=== PATIENT | female | born 1930 | race Caucasian/White ===

== ENCOUNTER 2016-06-21 18:32 | Emergency (ER) | payer MEDICARE ==
[2016-06-21] VITALS (9 sets, daily range): BP systolic 79–145; BP diastolic 47–104; PULSE 98–140; RESP 16–20; O2SAT 91–100
[~2016-06-21] VITALS: Ht 162.6 cm; Wt 68.2 kg
[2016-06-21] MEDS ORDERED: Ondansetron 2 mg/mL 2 mL Inj ONE (18:36)
[2016-06-21] MEDS ORDERED: MeTOProlol 1 mg/mL 5 mL Inj IVPUSH ONE ×2 (18:55→19:25)
[2016-06-21 18:58] LABS: BASOPHILS % (AUTO) 0.1 % (0-3); EOSINOPHILS % (AUTO) 0 % (0-5); MONOCYTES % (AUTO) 8.8 % (4-12); Mean Corpuscular Hemoglobin 26.7 pg (27.0-35.0); Mean Corpuscular Volume 85.2 fL (81-100); NEUTROPHILS % (AUTO) 86.6 % (40-74); Platelet Count 290 bil/L (150-400)
--- NOTE | 2016-06-21 19:10 | DRSVH ---
PROCEDURE: X-RAY CHEST ONE VIEW, PORTABLE ([id number]) INDICATIONS: Atrial fibrillation. TECHNIQUE: One view of the chest was acquired. COMPARISON: [facility], CR, CHEST 2VW, 04/25/2010, 10:50. FINDINGS: Surgical changes and devices: None. Lungs and pleura: No pleural effusions or pneumothorax. Streaky opacities noted in the right lung ba se likely represent atelectasis. Mediastinum: Mediastinal contours appear normal. Heart size is normal. Bones and chest wall: No suspicious bony lesions. Overlying soft tissues appear unremarkable. IMPRESSION: Probable right basilar atelectasis. No pulmonary edema. Dictated by: Connie Holbrook MD, PhD on 06/21/2016 at 19:08 Approved by: Connie Holbrook MD, PhD on 06/21/2016 at 19:09
[2016-06-21 19:27] LABS: TROPONIN T < 0.010 ug/L (0.0-0.011)
--- NOTE | 2016-06-21 19:30 | ED.REPORT ---
HPI-General Illness Date of Service Jun 21, 2016 ED Provider: Mehran Mcdaniel MD Johana Humphries is an 86 year old woman with a PMH of DM2, and HTN who presents having been found down by her daughter. Her daughter relates that the patient was in her usual state of health at 8am, and then when she returned home around 17:30 the patient was lying flat on the living room without recollection of how she had gotten there. She was able to give her demographic information to EMT and was A/O x3 on their initial evaluation. EMS relates that the patient was found to be in rapid Afib which continues upon arrival to the ER and is apparently an new phenomena for her. Her daughter relates that perhaps her face is slightly different compared to baseline. Nursing Notes Chief Complaint: Dysrhythmia/Cardiac Nursing Notes Reviewed: Yes Allergies: Coded Allergies: No Known Allergies (Unverified , 06/21/16) General Time Seen by MD: 19:15 Chief Complaint Other (GLF) Hx Obtained From: Patient Arrived By: Ambulance Sudden in Onset?: Yes Onset Occurred: 1 - 4 hours ago Caused by: Fall on ground Context: Occurred at: Home injury Location: : Hip left Quality: Aching Severity: Current: Mild Severity: Maximum: Mild Recent Healthcare: No recent doctor visit Similar Sx Previous: No Past Medical History Past Medical History DM2 HTN Goiter Review of Systems Full Review of Systems Constitutional: Reports: Weakness - generalized Cardiovascular: Reports: Palpitations Musculoskeletal: Reports: Joint pain Neurologic: Reports: Dizziness Complete sys rev & neg: except as marked. Physical Exam Gen: A/O x3 though attention is intermittent, leaning to the right, pleasant cooperative woman in NAD Neck: Supple, sidebent right, Large symmetrical Goiter extending to SCM BL HEENT: Heavy pannus, PERRL, EOMI, no scleral icterus CV: irregularly irregular, distant heart sounds, unable to detect murmur Resp: Coarse breath sounds BL, no wheezing rales or rhonchi Extr: Multiple skin sores in various stages of healing, no cyanosis clubbing or edema, patient able to elevate both legs off the bed Neuro: difficult to ascertain as patient's status as she is intermittently sleepy, perhaps nasal labial asymmetry though difficult to assess if this is due to chronic dependent edema from rightward leaning Vital Signs Vital Signs Date Time Temp Pulse Resp B/P Pulse Ox O2 Delivery O2 Flow Rate FiO2 06/21/16 22:16 109 16 79/47 100 ET Tube 06/21/16 21:56 120 16 116/76 100 ET Tube 06/21/16 21:47 115 16 111/62 100 ET Tube 06/21/16 21:17 36.8 115 16 120/66 100 ET Tube 06/21/16 20:50 125 17 145/94 100 ET Tube 06/21/16 20:50 100 06/21/16 20:31 112 18 138/92 99 Room Air 06/21/16 19:09 132 18 133/104 93 Room Air 06/21/16 18:50 36.2 140 20 113/97 91 Room Air Initial VS: Reviewed, Vital signs abnormal (Tachycardia and elevated diastolic pressure) Interpretation & Diagnostics Interpretation & Diagnostics: CT BRAIN WITHOUT CONTRAST IMPRESSION: 1. Large hypodensity involving the right cerebellar hemisphere concerning for subacute infarct. Recommend MRI of the brain for definitive characterization of a finding to exclude a underlying neoplastic process or subacute hemorrhage if clinically indicated. 2. Local mass effect is noted in the right posterior fossa with partial effacement of the right ambient cistern, mass effect on the fourth ventricle and mass effect on the upper medulla. No evidence of obstructive hydrocephalus identified in the current study. 3. Findings telephoned to Dr. Mehran Mcdaniel on 06/21/2016 at 1955 hrs. Dictated by: Connie Holbrook MD, PhD on 06/21/2016 at 19:51 Approved by: Connie Holbrook MD, PhD on 06/21/2016 at 20:00 Lab Results Interpretation Result Diagram: 06/21/16 1846 06/21/16 1846 Test 06/21/16 18:46 06/21/16 20:13 White Blood Count 11.8th/mm3 (3.8-10.1) Red Blood Count 4.46mil/mm3 (3.90-5.20) Hemoglobin 11.9g/dL (12.0-15.6) Hematocrit 38.0% (35.0-46.0) Mean Corpuscular Volume 85.2fL (81-100) Mean Corpuscular Hemoglobin 26.7pg (27.0-35.0) Mean Corpuscular Hemoglobin Concent 31.3% (32.0-37.0) Red Cell Distribution Width 15.8% (12.3-15.4) Platelet Count 290bil/L (150-400) Neutrophils (%) (Auto) 86.6% (40-74) Lymphocytes (%) (Auto) 4.3% (14-46) Monocytes (%) (Auto) 8.8% (4-12) Eosinophils (%) (Auto) 0% (0-5) Basophils (%) (Auto) 0.1% (0-3) D-Dimer 4.3mg/L (<0.50) Sodium Level 134mEq/L (134-144) Potassium Level 4.5mEq/L (3.5-5.2) Chloride Level 95mEq/L (97-108) Carbon Dioxide Level 23mmol/L (18-29) Blood Urea Nitrogen 18mg/dL (8-27) Creatinine 0.44mg/dL (0.57-1.00) Estimat Glomerular Filtration Rate 193mL/min (>59) Glucose Level 218mg/dL (60-99) Calcium Level 9.5mg/dL (8.5-10.1) Magnesium Level 2.3mg/dL (1.6-2.6) Total Bilirubin 0.8mg/dL (0.0-1.2) Aspartate Amino Transf (AST/SGOT) 25U/L (0-50) Alanine Aminotransferase (ALT/SGPT) 13U/L (0-32) Alkaline Phosphatase 121U/L (25-165) Total Creatine Kinase 344U/L (21-215) Creatine Kinase MB 8.5ng/mL (0.0-5.3) Creatine Kinase MB % 2.5% (0.0-5.0) Troponin T < 0.010ug/L (0.0-0.011) Pro-B-Type Natriuretic Peptide 2240pg/mL (0-738) Total Protein 7.3g/dL (6.4-8.4) Albumin 4.2g/dL (3.4-5.0) Urine Color Yellow (YELLOW) Urine Appearance Hazy (CLEAR,HAZY) Urine pH 6.5 (5.0-8.0) Urine Specific [place] 1.020 (1.003-1.035) Urine Protein 30mg/dL (NEG,TRACE) Urine Glucose (UA) 500mg/dL (NEGATIVE) Urine Ketones 40mg/dL (NEGATIVE) Urine Occult Blood Small (NEGATIVE) Urine Nitrite Negative (NEGATIVE) Urine Bilirubin Negative (NEGATIVE) Urine Urobilinogen Normalmg/dL (NORMAL) Urine Leukocyte Esterase Negative (NEGATIVE) Urine RBC 3-10/hpf (0-2) Urine WBC 0-5/hpf (0-5) Urine Epithelial Cells Few/hpf (NONE-MOD) Urine Crystals None seen (NONE SEEN) Urine Bacteria Few/hpf (NONE-FEW) Urine Hyaline Casts Occasional/lpf (NONE) Urine Granular Casts None seen (NONE SEEN) Urine Waxy Casts None seen (NONE SEEN) Urine Red Blood Cell Casts None seen (NONE SEEN) Urine White Blood Cell Casts None seen (NONE SEEN) Urine Mucus Present (None Seen) Urine Trichomonas None seen (NONE SEEN) Urine Yeast None (NONE SEEN) Urinalysis Comment None Urine Culture Reflexed Not indicated Lab Results Interpretation: Leukocytosis with Neutrophilic shift, mildly reduced Hg, BG and BNP elevated D-Dimer elevated likely due to CVA X-Ray Chest Interpretation Chest Xray Interpretation: Repeat CXR reveals proper placement of ET tube. 3rd CXR demonstrates no Pneumothorax following aborted subclavian acces attempt. Interpretation / Wet Read by: Interpret - Radiologist Infiltrate / Pneumothorax: Infiltrate R lower lung (basilar atelectasis) Procedures Central Line Placement Central Line Placement Note: Central line placement aborted due to inability to bypass a large goiter Time: 21:30 Procedure Performed by: ED physician Consent / Setup / Site Prep: Informed consent provided Local Anesthesia: Lidocaine 1% Side / Location / Ultrasound: Subclavian left Central Line Tip Location: Other (Attempt aborted) Intubation Time: 21:00 Procedure Performed by: ED physician Consent / Setup / Site Prep: Consent from repairer shoe sticks Patient Position: Sniff position Blade / ET Tube / Route: [place] scope Procedural Sedation/Analgesia: Sedation: Etomidate, Sedation: Propofol, Analgesia: Fentanyl ET Confirmation: CXR Secured / Marked: ET tube device Complications: None Post-Procedure: Patient stable Re-Eval/Medical Decision Med Decision/Clinical Course This is a patient that was found down by her daughter with a last known normal roughly 8 hour prior to discovery. Patient arrived in rapid Afib and was given Metoprolol 5 mg IV x2 to establish rate control. Brain CT revealed subacute infarct with mass effect afflicting the brainstem as outlined above. Patient was frequently becoming apnic thus she was intubated using Fentanyl and propofol for sedation. [facility] was contacted who recommended starting 3% hypertonic saline through a central line, unfortunately the patient's large goiter precluded central access in the neck and subclavian region, her intertrigo complicated a femoral line, and there was no IV therapy personel available certified to insert a PICC so this was unable to be accomplished. [facility] was contacted and informed of this development and they recommend that we not delay transport to establish central access, thus the patient was prepared for transfer to [facility]. Her daughter was informed of all relevant developments and the patient's likely poor prognosis, and she elects to continue with full treatment at this time. Counseled Regarding: Diagnosis, Lab results, Need for transfer Discharge & Departure Shift Change Sign-Out Patient Care Transferred: Yes Discussed Complaint(s): Yes Laboratory Evaluation: Lab evaluation discussed Imaging Studies: Imaging discussed Procedures: Results discussed Response to Therapy: Improved Primary Impression: CVA (cerebrovascular accident) CVA mechanism: thrombosis Precerebral and cerebral artery: unspecified cerebral artery Qualified Code: I63.30 - Cerebral infarction due to thrombosis of unspecified cerebral artery Disposition: Transfer, Acute Care Facility ([facility]) Receiving Hospital: [facility]; Dr Ashby ICU hospitalist accepts. Transfer Reason: Higher level of care Spoke with: Hospitalist Patient Status: Stable Patient Informed: Yes (daughter present and agrees. ) Discharge Condition All VS Reviewed: Yes Condition: Stable Referrals: Kelly Bolton MD (PCP) Crit Care Except Billable Proc Time Spent: 30-74 minutes Services Performed: Patient management by me, Time spent at bedside, Reviewing test results, Reviewing imaging, Discussing patient care, Documentation in record, Time with fam/surrogate Attending Statement I personally saw this patient with Dr Sun on 06/21. I was present throughout the intubation and central line attempts. I discussed the case with the accpeting physician, Dr Ashby at [facility]. Imaging was sent digitally. Patient is stable for trasfer. copies to: Kelly Bolton MD, David E DO Jun 21, 2016 19:30 Mehran Mcdaniel MD Jun 21, 2016 23:14
[2016-06-21 19:31] LABS: Magnesium 2.3 mg/dL (1.6-2.6)
[2016-06-21] MEDS ORDERED: 0.9% Sodium Chloride 500 ML IV ONE (19:45)
--- NOTE | 2016-06-21 20:02 | DRSVH ---
PROCEDURE: CT BRAIN WITHOUT CONTRAST ([id number]) INDICATIONS: Syncope TECHNIQUE: Noncontrast 4.5 mm thick angled axial sections acquired from the foramen magnum to the vertex, with c oronal reformats. COMPARISON: [facility], CT, CT HEAD WO CONTRAST, 03/21/2016, 8:36 AM. FINDINGS: Image quality: Excellent. CSF spaces: No extra-axial fluid collections. The ventricles are symmetric in size and shape. Brain: Hypodensity with associated mass effect noted in the right cerebellar hemisphere. The right ambient cistern is partially effaced. No upper transtentorial herniation noted. There is left to ri ght midline shift involving the cerebellum. No intracranial bleeds or masses. There is cerebral vol ume loss for age, with resultant ventricular and sulcal prominence. There are periventricular and de ep white matter chronic small vessel ischemic changes. There is intracranial internal carotid artery atherosclerosis. Skull and face: Calvarium and visualized facial bones appear intact, without suspicious lesions. Sinuses: Visualized sinuses and mastoids are clear. IMPRESSION: 1. Large hypodensity involving the right cerebellar hemisphere concerning for subacute infarct. Jimmy mmend MRI of the brain for definitive characterization of a finding to exclude a underlying neoplasti c process or subacute hemorrhage if clinically indicated. 2. Local mass effect is noted in the right posterior fossa with partial effacement of the right ambi ent cistern, mass effect on the fourth ventricle and mass effect on the upper medulla. No evidence o f obstructive hydrocephalus identified in the current study. 3. Findings telephoned to Dr. Mehran Mcdaniel on 06/21/2016 at 1955 hrs. Dictated by: Connie Holbrook MD, PhD on 06/21/2016 at 19:51 Approved by: Connie Holbrook MD, PhD on 06/21/2016 at 20:00
[2016-06-21] MEDS ORDERED: fentaNYL-PF 50 mCg/mL 2 mL Inj ONE ×2 (20:16→21:39)
[2016-06-21 20:25] LABS: APPEARANCE,URINE HAZY (CLEAR,HAZY); COLOR,URINE YELLOW (YELLOW); PH,URINE 6.5 (5.0-8.0)
[2016-06-21 20:26] LABS: OCCULT BLOOD,URINE SMALL (NEGATIVE); UROBILINOGEN,URINE NORMAL (NORMAL)
[2016-06-21] MEDS ORDERED: Propofol Inj 1,000,000 MCG in IV Premix 1 EACH IV SCH (20:43)
[2016-06-21] MEDS ORDERED: Propofol 10,000 mCg/mL 100 mL Inj ONE (20:45)
--- NOTE | 2016-06-21 21:05 | DRSVH ---
PROCEDURE: X-RAY CHEST ONE VIEW, PORTABLE ([id number]) INDICATIONS: post intubation TECHNIQUE: One view of the chest was acquired. COMPARISON: [facility], CR, XR CHEST 1VW (PORTABLE), 06/21/2016, 18:57. FINDINGS: Surgical changes and devices: ET tube is 3.6 cm per Hieu. Lungs and pleura: No pleural effusions or pneumothorax. Patchy opacities in the lung bases bilateral ly likely represent atelectasis. Mediastinum: Mediastinal contours appear normal. Heart size is normal. Bones and chest wall: No suspicious bony lesions. Overlying soft tissues appear unremarkable. IMPRESSION: ET tube 3.6 cm superior to the hieu. Dictated by: Connie Holbrook MD, PhD on 06/21/2016 at 21:03 Approved by: Connie Holbrook MD, PhD on 06/21/2016 at 21:04
[2016-06-21] MEDS ORDERED: 0.9% Sodium Chloride 1,000 ML IV ONE (22:30)
--- NOTE | 2016-06-22 08:51 | DRSVH ---
PROCEDURE: X-RAY CHEST ONE VIEW, PORTABLE ([id number]) INDICATIONS: post attempt at central line RECHECK OF ET TUBE TECHNIQUE: One view of the chest was acquired. COMPARISON: [facility], CR, CHEST 2VW, 04/25/2010, 10:50. [facility], CR, XR CHEST 1VW (PORTABLE), 06/21/2016, 18:57. FINDINGS: Surgical changes and devices: ETT tip projected 3.7 cm above the hieu. Nasogastric tube tip cordelia ses the GE junction. Lungs and pleura: No pleural effusions or pneumothorax. Bibasilar airspace opacities.. Calcified g ranuloma involving the medial right lung apex. Mediastinum: Mediastinal contours appear normal. Heart size is normal. Bones and chest wall: No suspicious bony lesions. Overlying soft tissues appear unremarkable. IMPRESSION: Bibasilar atelectasis versus aspiration or pneumonia. Correlate clinically. Dictated by: Jordan Roberto [facility] Interpreted: Connie Holbrook MD on 06/22/2016 at 8:49 Transcribed by: ALBINA on 06/22/2016 at 8:51 Approved by: Connie Holbrook MD, PhD on 06/22/2016 at 17:02
== END 2016-06-21 23:59 | disposition short-term general hospital (02) ==
LOC: SED 18:32
DX: I63.30 Cerebral infarction due to thrombosis of unspecified cerebral artery (principal); E11.9 Type 2 diabetes mellitus without complications; I10 Essential (primary) hypertension; E04.9 Nontoxic goiter, unspecified
CPT/HCPCS: 31500; 36415; 36556; 51702; 70450; 71010; 80053; 81000; 82550; 82553; 83735; 83880; 84484; 85025; 85379; 93005; 94002; 94799; 96374; 96375; 99291; J2405; J3010; J7030; J7040